=== PATIENT | male | born 1975 | race Caucasian/White ===

== ENCOUNTER 2016-12-12 14:51 | Emergency (ER) | payer SELFPAY ==
[2016-12-12 15:07] VITALS: BP 158/103; BMI 33.8
--- NOTE | 2016-12-12 15:28 | DR.ABDMALE ---
HPI - Time seen Time seen: 15:25 - PCP Primary Care Physician: MARYANN - HPI comment HPI Comment: HISTORY BELOW. - Complaint Chief Complaint Doctors Comments: RUQ, RT FLANK PAIN TIMES 3 DAYS. PAIN ASSOCIATED WITH NAUSEA AND VOMITING. NO FEVER. TODAY, PAIN SEVERE AND HOME MEDICATION IS NOT HELPING. Chief Complaint:: PT C/O RIGHT UPPER QUAD PAIN THAT STARTED ON TUESDAY AND THINKS IT MAYBE HIS GALLBLADDER AND THAT IT NEEDS TO BE REMOVED AND HE DOES NOT HAVE INS ,, Self Treatment fo Chief Complaint: AYESHA BOURGEOIS - Reviewed Nurses Notes Review: Yes - Mode of arrival Mode of Arrival: Ambulatory - Timing Onset of Chief Complaint: 12/03/16 Came on: Gradually - Duration Duration: Constant Duration: Days - Severity Severity: Moderate - Quality Quality: Cramping - Context Onset: Gradually History of: Similar pain (dx) - Modifying factors Worsening Factors: Nothing Improving Factors: Nothing - Associated signs and symptoms Associated Signs and Symptoms: Nausea, Vomiting PMH - PMH Past Medical History: Yes Past Medical History: Anxiety, CHF, Depression, Dyslipidemia, Hypertension, Sleep Apnea Past Surgical History: Yes Surgical History: Appendectomy - Family History History of Family Medical Conditions: Yes Family Medical History: Diabetes Mellitus, Cancer, [place], Coronary Artery Disease, Hypertension - Social History Does patient currently use any type of tobacco product: No Have you used tobacco products in the last 12 months: No Type of Tobacco Use: None How many years tobacco product used: 20 Does any household member use tobacco: No Alcohol Use: None Do you use any recreational Drugs:: No Lives With: Family Lives Where: Home - infectious screening In the last 2 months have you had wt loss of >10#?: NO Have you had fever, night sweats or hemotysis?: No Have you traveled outside the country in the last 6 months?: No Isolation: Standard ROS - Review of Systems Constitutional: No Symptoms Reported Eyes: No Symptoms Reported ENTM: No Symptoms Reported Respiratoy: No Symptoms Reported Cardiovascular: No Symptoms Reported Gastrointestinal/Abdominal: Abdominal Pain, Nausea, Vomiting Genitourinary: No Symptoms Reported Neurological: No Symptoms Reported Musculoskeletal: No Symptoms Reported, Muscle Pain Integumentary: No Symptoms Reported Hematologic/Lymphatic: No Symptoms Reported Endocrine: No Symptoms Reported All Other Systems: Reviewed and Negative PE - Vital Signs Vital Signs: Temp Pulse Resp BP BP BP Pulse Ox 12/12/16 15:03 98.1 F 110 H 22 158/103 98 11/25/15 16:16 122/81 11/04/15 08:00 118/71 11/02/14 04:00 158/102 - General Limitations: No Limitations General Appearance: Alert - Head Head Exam: Normal Inspection - Eyes Eye exam: Normal Appearance - ENT ENT Exam: Normal External Ear Exam - Neck Neck Exam: Trachea Midline - Chest Chest Inspection: Symmetric Chest Wall Rise - Respiratory Respiratory Exam: Prolonged Expiratory Phase Respiratory Exam: Bilateral Clear to Auscultation - Cardiovascular Cardiovascular Exam: Regular Rate, Normal Rhythm, Irregular Rhythm - Abdominal Exam Abdominal Exam: Normal Bowel Sounds, Soft, Tenderness Abdominal Tenderness: RUQ. negative: Epigastrium - Rectal Rectal Exam: Deferred - Back Back Exam: (R) CVA Tenderness - Extremeties Extremities Exam: Normal Inspection - Exam: Male: Deferred - Neurologic Neurological Exam: Alert, Oriented X3 - Psychiatric Psychiatric Exam: Normal Affect, Normal Mood - Skin Skin Exam: Normal Color MDM - Differential Diagnosis Differential Diagnosis: Bowel Obstruction, Cholcystitis, Cholelethiasis, Diverticular disease, Gastroenteritis, Pancreatitis, Urinary tract infection, Urolithiasis Course - Treatment Treatment: SEE ORDERNS - Education/Counseling Education/Counseling: Patient, Education Educated On: Treatment, Diagnosis, Needs for Follow Up ROR - Labs Reviewed Laboratory Results Reviewed?: Yes Result Diagrams: 12/12/16 15:45 12/12/16 15:45 Laboratory: WBC 12.8 X10^3/uL (3.6-10.0) H 12/12/16 15:45 RBC 5.27 X10^6/uL (4.7-6.0) 12/12/16 15:45 Hgb 16.0 g/dL (13.5-18.0) 12/12/16 15:45 Hct 46.9 % (42.0-54.0) 12/12/16 15:45 MCV 88.9 fL (80.0-100.0) 12/12/16 15:45 MCH 30.4 pg (27.0-34.0) 12/12/16 15:45 MCHC 34.2 g/dL (33.0-35.0) 12/12/16 15:45 RDW 13.6 % (11.6-16.5) 12/12/16 15:45 Plt Count 250 X10^3/uL (150.0-450.0) 12/12/16 15:45 MPV 7.5 fL (7.4-11.0) 12/12/16 15:45 Neut % 61.6 % (42.0-75.0) 12/12/16 15:45 Lymph % 24.4 % (21.0-51.0) 12/12/16 15:45 [place] % 8.9 % (0.0-13.0) 12/12/16 15:45 Eos % 4.1 % (0.9-2.9) H 12/12/16 15:45 Baso % 1.0 % (0.2-1.0) 12/12/16 15:45 Neut # 7.9 x10^3/uL (2.2-4.8) H 12/12/16 15:45 Lymph # 3.1 X10^3/uL (1.3-2.9) H 12/12/16 15:45 [place] # 1.1 x10^3/uL (0.3-0.8) H 12/12/16 15:45 Eos # 0.5 x10^3/uL (0.0-0.2) H 12/12/16 15:45 Baso # 0.1 X10^3/uL (0.0-0.1) 12/12/16 15:45 Absolute Nucleated RBC 0.0 /100WBC 12/12/16 15:45 Sodium 130 mmol/L (136-145) L 12/12/16 15:45 Corrected Sodium TNP 12/12/16 15:45 Potassium 3.8 mmol/L (3.5-5.1) 12/12/16 15:45 Chloride 96 mmol/L (98-107) L 12/12/16 15:45 Carbon Dioxide 30.2 mmol/L (21-32) 12/12/16 15:45 BUN 11 mg/dL (7-18) 12/12/16 15:45 Creatinine 1.50 mg/dL (0.70-1.30) H 12/12/16 15:45 Est GFR (MDRD) Af Amer > 60 (>60) 12/12/16 15:45 Est GFR (MDRD) Non-Af 55 (>60) L 12/12/16 15:45 Glucose 80 mg/dL (65-99) 12/12/16 15:45 Calcium 8.6 mg/dL (8.5-10.1) 12/12/16 15:45 Corrected Calcium TNP 12/12/16 15:45 Total Bilirubin 0.30 mg/dL (0.2-1.0) 12/12/16 15:45 AST 13 Units/L (15-37) L 12/12/16 15:45 ALT 18 Units/L (12-78) 12/12/16 15:45 Alkaline Phosphatase 81 Units/L (46-116) 12/12/16 15:45 Total Protein 7.7 g/dL (6.4-8.2) 12/12/16 15:45 Albumin 3.8 g/dL (3.4-5.0) 12/12/16 15:45 Globulin 3.9 g/dL (2.5-4.5) 12/12/16 15:45 Albumin/Globulin Ratio 1.0 Ratio (1.1-2.1) L 12/12/16 15:45 Amylase 29 Units/L (25-115) 12/12/16 15:45 Lipase 147 Units/L (73-393) 12/12/16 15:45 Specimen Type Clean catch urine 12/12/16 15:45 Urine Color Yellow (YELLOW) 12/12/16 15:45 Urine Appearance Hazy (CLEAR) 12/12/16 15:45 Urine pH 5.0 (5.0 - 8.0) 12/12/16 15:45 Ur Specific [place] 1.025 (1.000-1.030) 12/12/16 15:45 Urine Protein 2+ (NEGATIVE) 12/12/16 15:45 Urine Glucose (UA) Negative (NEGATIVE) 12/12/16 15:45 Urine Ketones 1+ (NEGATIVE) 12/12/16 15:45 Urine Occult Blood 2+ (NEGATIVE) 12/12/16 15:45 Urine Nitrite Negative (NEGATIVE) 12/12/16 15:45 Urine Bilirubin Negative (NEGATIVE) 12/12/16 15:45 Urine Urobilinogen 1+ (NORMAL) 12/12/16 15:45 Ur Leukocyte Esterase 1+ (NEGATIVE) 12/12/16 15:45 Urine RBC 0 - 2 /HPF (NEGATIVE) 12/12/16 15:45 Urine WBC 0 - 4 /HPF (NEGATIVE) 12/12/16 15:45 Ur Squamous Epith Cells Few /HPF (NEGATIVE) 12/12/16 15:45 Amorphous Sediment 2+ /HPF (NEGATIVE) 12/12/16 15:45 Urine Bacteria Negative /HPF (NEGATIVE) 12/12/16 15:45 Hyaline Casts Rare /LPF (NEGATIVE) 12/12/16 15:45 Urine Mucus Moderate /HPF (NEGATIVE) 12/12/16 15:45 Ur Culture Indicated? No/not indicated 12/12/16 15:45 - XRAY XRAY Interpreted by: Radiologist XRAY Findings: REPORT DISCUSS WITH PATIENT. - Diagnosis Discharge Problem: Cholelithiasis - Discharge Plan Disposition: 01 HOME, SELF-CARE Condition: Stable Prescriptions: Ondansetron HCl [Zofran Tab 4 mg] 4 mg PO Q8H PRN #12 tab PRN Reason: Nausea/Vomiting Ranitidine HCl [ZANTAC TAB 150 MG *] 150 mg PO BID #20 tab Tramadol HCl 50 mg PO Q8H PRN #15 tablet PRN Reason: - Follow ups/Referrals Follow ups/Referrals: NFD,None [Primary Care Provider] - 3 days MAITE MONTILLA [STAFF PHYSICIAN] - 3 days - Instructions Instructions: Cholelithiasis, Abdominal Pain, Adult, [id number] Additional Instructions: RETURN TO ED IF WORSE.
[2016-12-12 15:53] LABS: BASOPHILS # (AUTO) 0.1 X10^3/uL (0.0-0.1); EOSINOPHILS # (AUTO) 0.5 x10^3/uL (0.0-0.2); EOSINOPHILS % (AUTO) 4.1 % (0.9-2.9); HEMATOCRIT 46.9 % (42.0-54.0); LYMPHOCYTES # (AUTO) 3.1 X10^3/uL (1.3-2.9); LYMPHOCYTES % (AUTO) 24.4 % (21.0-51.0); MEAN CORPUSCULAR HEMOGLOBIN 30.4 pg (27.0-34.0); MEAN CORPUSCULAR HGB CONC 34.2 g/dL (33.0-35.0); MEAN CORPUSCULAR VOLUME 88.9 fL (80.0-100.0); MEAN PLATELET VOLUME 7.5 fL (7.4-11.0); MONOCYTES # (AUTO) 1.1 x10^3/uL (0.3-0.8); MONOCYTES % (AUTO) 8.9 % (0.0-13.0); NEUTROPHILS # (AUTO) 7.9 x10^3/uL (2.2-4.8); NEUTROPHILS % (AUTO) 61.6 % (42.0-75.0); PLATELET COUNT 250 X10^3/uL (150.0-450.0); RED BLOOD COUNT 5.27 X10^6/uL (4.7-6.0); RED CELL DISTRIBUTION WIDTH 13.6 % (11.6-16.5); WHITE BLOOD COUNT 12.8 X10^3/uL (3.6-10.0)
[2016-12-12 15:58] LABS: BILIRUBIN,URINE NEGATIVE (NEGATIVE); BLOOD/HEMOGLOBIN,URINE 2+ (NEGATIVE); GLUCOSE, URINE NEGATIVE (NEGATIVE); KETONES,URINE 1+ (NEGATIVE); LEUKOCYTE ESTERASE ,URINE 1+ (NEGATIVE); NITRITES,URINE NEGATIVE (NEGATIVE); PROTEIN,URINE 2+ (NEGATIVE); UROBILINOGEN,URINE 1+ (NORMAL)
[2016-12-12] MEDS ORDERED: ZOFRAN INJ 4 MG VIAL IM ONE (16:04)
[2016-12-12] MEDS ORDERED: MORPHINE SULFATE INJ 4 MG IM ONE (16:04)
[2016-12-12 16:06] LABS: APPEARANCE,URINE HAZY (CLEAR); COLOR,URINE YELLOW (YELLOW)
[2016-12-12] MEDS ORDERED: ZOFRAN INJ 4 MG VIAL ONE (16:06)
[2016-12-12] MEDS ORDERED: MORPHINE SULFATE INJ 4 MG ONE (16:06)
--- NOTE | 2016-12-12 16:06 | CT ---
HISTORY: Right upper quadrant pain Study: CT abdomen pelvis without contrast Comparison: 04/27/2013 report Technique: Axial noncontrast images with coronal and sagittal reformats. Dose reduction procedures we re used with mA/kv adjusted for body size. The examination is limited due to the lack of intravenous and oral contrast. Findings: The lung bases are clear with the exception of some subsegmental atelectasis in the right lung base. The liver, spleen, adrenal glands, and pancreas are within normal limits to the limitations of an une nhanced examination. The gallbladder is mildly distended. Multiple cholesterol calculi are identified within the gallbladder. Gallbladder wall thickness appears within normal limits. No pericholecystic inflammation is identified. However, if acute cholecystitis is a clinical consideration nuclear medic ine hepatobiliary scan would be of further diagnostic value and should be considered. The kidneys are unobstructed and without stones or masses. No ureteral calculi are identified. The appendix is not i dentified. There are no secondary signs of appendicitis. There is no evidence for diverticulitis or c olitis. Examination of the pelvis demonstrated no evidence for pelvic masses, pelvic fluid, or pelvic lymphadenopathy. No significant skeletal abnormalities identified. IMPRESSION: Cholelithiasis without definite radiographic evidence for cholecystitis. If cholecystitis is a strong clinical consideration nuclear medicine biliary scan would be of further diagnostic value in assessi ng cystic duct patency. Reported By:
[2016-12-12 16:07] LABS: ALANINE AMINOTRANSFERASE 18 Units/L (12-78); ALBUMIN 3.8 g/dL (3.4-5.0); ALKALINE PHOSPHATASE 81 Units/L (46-116); AMYLASE 29 Units/L (25-115); ASPARTATE AMINO TRANSFERASE 13 Units/L (15-37); BLOOD UREA NITROGEN 11 mg/dL (7-18); CALCIUM 8.6 mg/dL (8.5-10.1); CARBON DIOXIDE 30.2 mmol/L (21-32); CHLORIDE 96 mmol/L (98-107); LIPASE 147 Units/L (73-393); SODIUM 130 mmol/L (136-145); TOTAL PROTEIN 7.7 g/dL (6.4-8.2); eGFR BLACK RACES > 60 (>60); eGFR NON BLACK RACES 55 (>60)
[2016-12-12 16:14] LABS: RBC,URINE 0 - 2 /HPF (NEGATIVE); SQUAMOUS EPITHELIAL CELL,UR FEW /HPF (NEGATIVE)
[2016-12-12 16:15] LABS: AMORPHOUS SEDIMENT,UR 2+ /HPF (NEGATIVE); BACTERIA,URINE NEGATIVE /HPF (NEGATIVE); HYALINE CASTS, URINE RARE /LPF (NEGATIVE); MUCUS,URINE MODERATE /HPF (NEGATIVE)
== END 2016-12-12 16:54 | disposition home or self-care (01) ==
LOC: ER 15:11
DX: K80.20 Calculus of gallbladder without cholecystitis without obstruction (principal)
CPT/HCPCS: 36415; 74176; 80053; 81001; 82150; 83690; 85025; 96372; 99283; J2270; J2405

== ENCOUNTER → 2017-04-14 | Outpatient (CLI) | payer OTHER ==
[2017-04-14 11:01] LABS: BASOPHILS # (AUTO) 0.3 X10^3/uL (0.0-0.1); BASOPHILS % (AUTO) 2.7 % (0.2-1.0); EOSINOPHILS # (AUTO) 0.3 x10^3/uL (0.0-0.2); EOSINOPHILS % (AUTO) 3.2 % (0.9-2.9); HEMATOCRIT 44.4 % (42.0-54.0); HEMOGLOBIN 15.3 g/dL (13.5-18.0); LYMPHOCYTES # (AUTO) 3.3 X10^3/uL (1.3-2.9); LYMPHOCYTES % (AUTO) 30.3 % (21.0-51.0); MEAN CORPUSCULAR HEMOGLOBIN 30.4 pg (27.0-34.0); MEAN CORPUSCULAR HGB CONC 34.5 g/dL (33.0-35.0); MEAN CORPUSCULAR VOLUME 88.1 fL (80.0-100.0); MONOCYTES # (AUTO) 0.7 x10^3/uL (0.3-0.8); MONOCYTES % (AUTO) 6.7 % (0.0-13.0); NEUTROPHILS # (AUTO) 6.3 x10^3/uL (2.2-4.8); NEUTROPHILS % (AUTO) 57.1 % (42.0-75.0); PLATELET COUNT 277 X10^3/uL (150.0-450.0); RED BLOOD COUNT 5.04 X10^6/uL (4.7-6.0); RED CELL DISTRIBUTION WIDTH 13.9 % (11.6-16.5)
[2017-04-14 11:12] LABS: ALANINE AMINOTRANSFERASE 19 Units/L (12-78); ALBUMIN 3.4 g/dL (3.4-5.0); ALKALINE PHOSPHATASE 86 Units/L (46-116); ASPARTATE AMINO TRANSFERASE 13 Units/L (15-37); BLOOD UREA NITROGEN 9 mg/dL (7-18); CALCIUM 8.3 mg/dL (8.5-10.1); CARBON DIOXIDE 29.3 mmol/L (21-32); CHLORIDE 103 mmol/L (98-107); CHOL/HDL RATIO 5.3 (0.0-5.0); CHOLESTEROL 154 mg/dL (0-200); CREATININE 1.04 mg/dL (0.70-1.30); FREE T4 (FREE THYROXINE) 1.11 ng/dL (0.76-1.46); HDL CHOLESTEROL 29 mg/dL (40-60); SODIUM 138 mmol/L (136-145); TOTAL PROTEIN 7.1 g/dL (6.4-8.2); TRIGLYCERIDES 76 mg/dL (0-150); TSH (3RD GENERATION) 0.753 uIU/mL (0.358-3.74); eGFR BLACK RACES > 60 (>60); eGFR NON BLACK RACES > 60 (>60)
[2017-04-14 12:36] LABS: TOTAL PSA 0.33 ng/mL (0.13-4.0)
== END ==
LOC: LAB 10:35
PROVIDERS: ATTEND Nurse Practitioner Family
DX: R47.89 Other speech disturbances (principal); Z12.5 Encounter for screening for malignant neoplasm of prostate; Z79.899 Other long term (current) drug therapy
CPT/HCPCS: 36415; 80053; 80061; 84153; 84439; 84443; 85025

== ENCOUNTER 2025-01-17 06:17 | Observation (INO) ==
[2025-01-17] MEDS: LR 1,000 ML IV 1,000 ML IV ONE (07:01)
[2025-01-17] MEDS: NS 100 ML IV 100 ML ONE (07:01)
[2025-01-17] MEDS: LR 1,000 ML IV 800 ML IV PRN (07:10)
[2025-01-17] MEDS: FENTANYL VIAL INJ 100 mcg ONE (07:17)
[2025-01-17] MEDS: VERSED ONE (07:17)
[2025-01-17] MEDS: XYLOCAINE 2 % (PLAIN) ONE (07:18)
[2025-01-17] MEDS: DECADRON INJ ONE (07:18)
[2025-01-17] MEDS: HEPARIN SODIUM INJ 5000 UNITS ONE ×2 (07:18→09:14)
[2025-01-17] MEDS: REGLAN INJ 10 MG VIAL ONE (07:18)
[2025-01-17] MEDS: ZOFRAN INJ 4 MG VIAL ONE (07:18)
[2025-01-17] MEDS: DIPRIVAN VIAL 20 ML ONE ×4 (07:18→09:25)
[2025-01-17] MEDS: TORADOL 30 MG VIAL ONE (07:19)
[2025-01-17] MEDS: PRECEDEX INJ VIAL ONE (07:20)
[2025-01-17] MEDS: PEPCID 20 MG VIAL ONE (07:20)
[2025-01-17] MEDS: DUONEB 0.5 MG/3 MG (3 mL) NEB ONE (07:29)
[2025-01-17] MEDS: ZOFRAN INJ 4 MG VIAL IVP PRN (07:32)
[2025-01-17] MEDS: PEPCID 20 MG VIAL IVP PRN (07:34)
[2025-01-17] MEDS: REGLAN INJ 10 MG VIAL IVP PRN (07:36)
[2025-01-17] MEDS: ANCEF VIAL 1 GRAM IV PRN (07:41)
[2025-01-17] MEDS: ANCEF VIAL 1 GRAM ONE (07:43)
[2025-01-17] MEDS: VERSED IVP PRN (07:43)
[2025-01-17] MEDS: DECADRON INJ IVP PRN (07:51)
[2025-01-17] MEDS: FENTANYL VIAL INJ 100 mcg IVP PRN (07:55)
[2025-01-17] MEDS: XYLOCAINE 2 % (PLAIN) IVP PRN (07:55)
[2025-01-17] MEDS: OFIRMEV IV 1000 MG VIAL 1,000 MG/100 ML VIAL IV ONE (07:55)
[2025-01-17] MEDS: PRECEDEX INJ VIAL IVP PRN ×2 (07:56→09:34)
[2025-01-17] MEDS: DIPRIVAN VIAL 200 ML IVP PRN (07:56)
[2025-01-17] MEDS: KETAMINE HCL IVP PRN ×2 (07:58→09:27)
[2025-01-17] MEDS: OFIRMEV IV 1000 MG VIAL 1,000 MG/100 ML VIAL IV PRN (08:00)
[2025-01-17] MEDS: NORMODYNE INJ 20 MG VIAL ONE (08:07)
[2025-01-17] MEDS: NORMODYNE INJ 20 MG VIAL IVP PRN ×2 (08:08→09:29)
[2025-01-17] MEDS: HEPARIN 1,000 UNIT/500 ML-NS 3,000 UNIT/1,500 ML IV.SOLN ONE (08:13)
[2025-01-17] MEDS: VISIPAQUE 100 ML ONE (08:13)
[2025-01-17] MEDS: MARCAINE 0.5% ONE (08:13)
[2025-01-17] MEDS: VISIPAQUE 50 ML ONE (08:13)
[2025-01-17] MEDS ORDERED: HEPARIN SODIUM INJ 5000 UNITS IVP PRN ×2 (08:16→09:16)
[2025-01-17] MEDS: NS 500 ML IV 500 ML IV ONE (08:35)
[2025-01-17] MEDS: TORADOL 30 MG VIAL IVP PRN (09:02)
[2025-01-17] MEDS: ROBINUL ONE (09:28)
[2025-01-17] MEDS: PROTAMINE SULFATE 50 MG VIAL IVP PRN (09:46)
[2025-01-17] MEDS: PROTAMINE SULFATE 50 MG VIAL ONE (09:46)
[2025-01-17] MEDS: ROBINUL IVP PRN (09:48)
[2025-01-17] MEDS ORDERED: DILAUDID INJ IVP PRN (10:03)
[2025-01-17] MEDS ORDERED: BENADRYL INJ 50 MG VIAL IVP PRN (10:03)
[2025-01-17] MEDS ORDERED: BARHEMSYS INJ IVP PRN (10:03)
[2025-01-17] MEDS ORDERED: REGLAN INJ 10 MG VIAL IVP PRN (10:03)
[2025-01-17] MEDS ORDERED: ZOFRAN INJ 4 MG VIAL IVP PRN (10:03)
[2025-01-17] MEDS: DILAUDID INJ ONE (10:09)
--- NOTE | 2025-01-17 10:24 | OR.IMMED ---
IMMEDIATE POST-OP NOTE Immediate Post-Op Note Date of surgery/procedure: 01/17/25 Pre-Op Diagnosis: Critical ischemia left leg Post-Op Diagnosis: Same Procedure: Aortogram, arteriogram left leg, atherectomy and drug-coated balloon angioplasty and subsequent drug-eluting stenting of the entire occluded left superficial femoral artery with single-vessel runoff via large posterior tibial artery Description of Procedure: dictated Surgeon/Timber Feller: Castro Lainez MD, FACS Findings: Long segment occlusion of the left superficial femoral artery from its takeoff to the adductor canal with one-vessel runoff via large posterior tibial artery Estimated Blood Loss: 100 cc Complications: None Progress Notes: Patient will be kept as observation tonight
[2025-01-17] MEDS ORDERED: LR 1,000 ML IV 1,000 ML IV SCH (11:00)
[2025-01-17] MEDS ORDERED: KETAMINE HCL ONE (11:00)
[2025-01-17] MEDS: LR 1,000 ML IV 1,000 ML IV SCH (11:34)
[2025-01-17] MEDS: PERCOCET TAB 5/325 MG PO PRN (12:12)
[2025-01-17] MEDS ORDERED: PROVENTIL NEB TX 0.083% 2.5MG/ 3ML NEB PRN (14:03)
[2025-01-17 14:05] VITALS: BMI 39.5
[2025-01-17] MEDS: STERILE WATER IRRIGATION IR ONE (16:44)
[2025-01-17] MEDS: LOPRESSOR TAB 25 MG PO SCH (21:33)
[2025-01-17] MEDS: ZESTRIL TAB 20 MG PO SCH (21:33)
[2025-01-18 06:01] LABS: MEAN PLATELET VOLUME 7.6 fL (7.4-11.0); RED CELL DISTRIBUTION WIDTH 15.8 % (11.6-16.5)
[2025-01-18 06:19] LABS: COR CA(FOR HYPOALB) 9.4 mg/dL (8.5-10.1); COR NA(FOR HYPERGLY) 141 mmol/L (136-145); CREATININE 1.01 mg/dL (0.70-1.30); eGFR NON BLACK RACES > 60 (>60)
[2025-01-18 07:40] VITALS: RESP 16
[2025-01-18] MEDS: LOVENOX INJ 40 MG SYR SC SCH (08:23)
[2025-01-18] MEDS: ASPIRIN EC 81 MG PO SCH (08:24)
[2025-01-18] MEDS: LASIX PO SCH (08:24)
[2025-01-18] MEDS: PROTONIX TAB 40 MG PO SCH (08:24)
[2025-01-18] MEDS: LIPITOR TAB 40 MG PO SCH (08:25)
[2025-01-18] MEDS: ZESTRIL TAB 20 MG ONE ×2 (08:25→08:32)
[2025-01-18] MEDS: PLAVIX PO SCH (08:25)
[2025-01-18 09:31] VITALS: O2SAT 98
--- NOTE | 2025-01-18 10:35 | W.DIS.FURT ---
Summary of Discharge Discharge Summary of Date Date of Exam: 01/18/25 Admission Date Date of Admission: 01/17/25 Admission Diagnosis Hospital Course: Is a 49-year-old male with bilateral significant critical ischemia lower extremities. Yesterday he underwent atherectomy and drug-coated balloon angioplasty of long segment occlusion of the left superficial femoral artery. He was kept overnight because of his morbid obesity and dependence on BiPAP at night. He has done well and be discharged today on his usual medications. He will continue aspirin and Plavix and follow-up with me in 1 week Vital Signs: Vital Signs (72 hours) 01/17/25 06:40 01/17/25 06:40 01/17/25 09:58 Temperature 98.0 F 97.8 F Pulse Rate 70 70 82 Pulse Rate [Apical] Respiratory Rate 18 18 Blood Pressure 163/71 140/67 Blood Pressure [Right Arm] O2 Sat by Pulse Oximetry 99 97 Oxygen Delivery Method Room Air Nasal Cannula Oxygen Flow Rate FIO2% 01/17/25 10:03 01/17/25 10:09 01/17/25 10:10 Temperature Pulse Rate 82 83 Pulse Rate [Apical] Respiratory Rate 18 16 20 Blood Pressure 144/62 160/74 Blood Pressure [Right Arm] O2 Sat by Pulse Oximetry 97 97 Oxygen Delivery Method Nasal Cannula Nasal Cannula Oxygen Flow Rate FIO2% 01/17/25 10:20 01/17/25 10:30 01/17/25 10:39 Temperature Pulse Rate 81 79 Pulse Rate [Apical] Respiratory Rate 16 18 16 Blood Pressure 152/79 152/79 Blood Pressure [Right Arm] O2 Sat by Pulse Oximetry 96 96 Oxygen Delivery Method Nasal Cannula Nasal Cannula Oxygen Flow Rate FIO2% 01/17/25 10:40 01/17/25 10:50 01/17/25 11:00 Temperature 98.0 F Pulse Rate 80 Pulse Rate [Apical] 78 Respiratory Rate 18 20 Blood Pressure 162/74 Blood Pressure [Right Arm] 137/75 O2 Sat by Pulse Oximetry 97 98 Oxygen Delivery Method Nasal Cannula Nasal Cannula Nasal Cannula Oxygen Flow Rate 2 2 FIO2% 01/17/25 11:00 01/17/25 11:15 01/17/25 11:30 Temperature Pulse Rate Pulse Rate [Apical] 74 72 Respiratory Rate 20 20 Blood Pressure Blood Pressure [Right Arm] 147/71 151/77 O2 Sat by Pulse Oximetry 98 97 Oxygen Delivery Method Nasal Cannula Nasal Cannula Nasal Cannula Oxygen Flow Rate 2 2 2 FIO2% 28 01/17/25 11:45 01/17/25 12:00 01/17/25 12:12 Temperature Pulse Rate Pulse Rate [Apical] 77 70 Respiratory Rate 20 20 20 Blood Pressure Blood Pressure [Right Arm] 167/72 151/55 O2 Sat by Pulse Oximetry 99 97 Oxygen Delivery Method Nasal Cannula Nasal Cannula Oxygen Flow Rate 2 2 FIO2% 01/17/25 13:00 01/17/25 13:12 01/17/25 14:00 Temperature Pulse Rate Pulse Rate [Apical] 87 87 Respiratory Rate 20 16 20 Blood Pressure Blood Pressure [Right Arm] 168/75 164/71 O2 Sat by Pulse Oximetry 97 97 Oxygen Delivery Method Nasal Cannula Nasal Cannula Oxygen Flow Rate 2 2 FIO2% 01/17/25 15:00 01/17/25 16:00 01/17/25 19:00 Temperature 97.7 F Pulse Rate Pulse Rate [Apical] 87 83 Respiratory Rate 20 19 Blood Pressure Blood Pressure [Right Arm] 187/82 147/73 O2 Sat by Pulse Oximetry 97 98 Oxygen Delivery Method Nasal Cannula Nasal Cannula CPAP Oxygen Flow Rate 2 2 FIO2% 01/17/25 20:00 01/17/25 20:33 01/18/25 00:00 Temperature 98.1 F 97.8 F Pulse Rate Pulse Rate [Apical] 90 85 Respiratory Rate 17 18 Blood Pressure Blood Pressure [Right Arm] 138/64 158/75 O2 Sat by Pulse Oximetry 98 97 Oxygen Delivery Method CPAP Nasal Cannula CPAP Oxygen Flow Rate 2 2 2 FIO2% 28 01/18/25 04:00 01/18/25 06:01 01/18/25 07:00 Temperature 97.6 F Pulse Rate Pulse Rate [Apical] 75 Respiratory Rate 19 19 Blood Pressure Blood Pressure [Right Arm] 147/75 O2 Sat by Pulse Oximetry 92 L Oxygen Delivery Method CPAP Room Air Oxygen Flow Rate 2 FIO2% 01/18/25 07:01 01/18/25 07:39 01/18/25 09:14 Temperature 97.6 F Pulse Rate Pulse Rate [Apical] 80 Respiratory Rate 19 16 Blood Pressure Blood Pressure [Right Arm] 147/75 O2 Sat by Pulse Oximetry 97 Oxygen Delivery Method Room Air Room Air Oxygen Flow Rate 2 FIO2% 01/18/25 09:14 Temperature Pulse Rate 70 Pulse Rate [Apical] Respiratory Rate Blood Pressure Blood Pressure [Right Arm] O2 Sat by Pulse Oximetry 98 Oxygen Delivery Method Oxygen Flow Rate FIO2% Labs: Laboratory Last Values WBC 20.7 X10^3/uL (3.6-10.0) H 01/18/25 05:25 RBC 3.78 X10^6/uL (4.7-6.0) L 01/18/25 05:25 Hgb 12.9 g/dL (13.5-18.0) L 01/18/25 05:25 Hct 38.8 % (42.0-54.0) L 01/18/25 05:25 MCV 102.4 fL (80.0-100.0) H 01/18/25 05:25 MCH 34.1 pg (27.0-34.0) H 01/18/25 05:25 MCHC 33.3 g/dL (33.0-35.0) 01/18/25 05:25 RDW 15.8 % (11.6-16.5) 01/18/25 05:25 Plt Count 227 X10^3/uL (150.0-450.0) 01/18/25 05:25 MPV 7.6 fL (7.4-11.0) 01/18/25 05:25 Neut % (Auto) 88.8 % (42.0-75.0) H 01/18/25 05:25 Lymph % (Auto) 5.7 % (21.0-51.0) L 01/18/25 05:25 [place] % (Auto) 4.4 % (0.0-13.0) 01/18/25 05:25 Eos % (Auto) 0.0 % (0.9-2.9) L 01/18/25 05:25 Baso % (Auto) 1.1 % (0.2-1.0) H 01/18/25 05:25 Neut # (Auto) 18.4 x10^3/uL (2.2-4.8) H 01/18/25 05:25 Lymph # (Auto) 1.2 X10^3/uL (1.3-2.9) L 01/18/25 05:25 [place] # (Auto) 0.9 x10^3/uL (0.3-0.8) H 01/18/25 05:25 Eos # (Auto) 0.0 x10^3/uL (0.0-0.2) 01/18/25 05:25 Baso # (Auto) 0.2 X10^3/uL (0.0-0.1) H 01/18/25 05:25 Absolute Nucleated RBC 0.0 /100WBC 01/18/25 05:25 Sodium 140 mmol/L (136-145) 01/18/25 05:25 Corrected Sodium 141 mmol/L (136-145) 01/18/25 05:25 Potassium 4.4 mmol/L (3.5-5.1) 01/18/25 05:25 Chloride 102 mmol/L (98-107) 01/18/25 05:25 Carbon Dioxide 29.0 mmol/L (21-32) 01/18/25 05:25 BUN 11 mg/dL (7-18) 01/18/25 05:25 Creatinine 1.01 mg/dL (0.70-1.30) 01/18/25 05:25 Est GFR (MDRD) Af Amer > 60 (>60) 01/18/25 05:25 Est GFR (MDRD) Non-Af > 60 (>60) 01/18/25 05:25 Glucose 139 mg/dL (65-99) H 01/18/25 05:25 Calcium 8.5 mg/dL (8.5-10.1) 01/18/25 05:25 Corrected Calcium 9.4 mg/dL (8.5-10.1) 01/18/25 05:25 Total Bilirubin 0.30 mg/dL (0.2-1.0) 01/18/25 05:25 AST 11 Units/L (15-37) L 01/18/25 05:25 ALT 18 Units/L (12-78) 01/18/25 05:25 Alkaline Phosphatase 96 Units/L (46-116) 01/18/25 05:25 Total Protein 6.6 g/dL (6.4-8.2) 01/18/25 05:25 Albumin 2.9 g/dL (3.4-5.0) L 01/18/25 05:25 Globulin 3.7 g/dL (2.5-4.5) 01/18/25 05:25 Albumin/Globulin Ratio 0.8 Ratio (1.1-2.1) L 01/18/25 05:25 Reason For Visit: CRITICAL ISCHEMIA LEFT LEG Discharge Date Discharge Date: 01/18/25 Discharge Diagnosis All Active Problems (Updated 03/27/24 @ 13:32 by BERNICE HENAO MD) Palpitations (Acute) PVD (peripheral vascular disease) (Acute) Hyperlipemia (Acute) Smoker (Acute) CAD (coronary artery disease) (Acute) Carotid stenosis (Acute) Neck pain (Acute) Abscess of skin (Acute) Cellulitis (Acute) Back pain (Acute) Drug overdose, intentional (Acute) Drug abuse and dependence (Acute) Drug overdose (Acute) Sleep apnea (Acute) Suicide (Acute) Chronic back pain (Acute) Strain of thoracic region (Acute) Lumbosacral injury (Acute) Cervical sprain (Acute) Urinary tract infection (Acute) Low back pain (Acute) Spinal stenosis at L4-L5 level (Acute) Musculoskeletal pain (Acute) Spondylosis of cervical spine (Acute) Manic depression (Acute) Bipolar 1 disorder, depressed (Acute) Suicidal ideations (Acute) Severe depression (Acute) Depression (Acute) Suicidal behavior (Acute) Attempted suicide (Acute) Altered mental status (Acute) CHF (congestive heart failure) (Acute) COPD exacerbation (Acute) Laceration (Acute) Psychiatric symptoms (Acute) Cholelithiasis (Acute) Abdominal pain (Acute) Chest pain (Acute) Chest pain (Acute) Hypotension (Acute) Chest pain (Acute) Non-healing wound (Acute) Plan of Treatment: Continue with present treatment and follow up plan. Pt is to keep follow up appointment as instructed and take medications as ordered. Discharge Medications Discharge Medications: No Known Drug Allergies Allergy (Verified 12/04/24 10:21) CONTINUE taking the following medications albuterol sulfate 90 mcg/actuation aerosol inhaler (Ventolin HFA) 2 puff inhalation Q6H PRN 01/17/25 [History] aspirin 81 mg tablet,delayed release 81 mg PO TID 01/17/25 [History] atorvastatin 40 mg tablet 40 mg PO QDAY 01/17/25 [History] bupropion HCl 150 mg 24 hr tablet, extended release 150 mg PO QDAY 01/17/25 [History] carbidopa 25 mg-levodopa 100 mg tablet 1 tab PO BID 01/17/25 [History] ciclopirox 0.77 % topical cream 1 applic topical BID 01/17/25 [History] clopidogrel 75 mg tablet 75 mg PO QDAY 01/17/25 [History] diltiazem HCl 120 mg capsule,24 hr,extended release 120 mg PO QDAY 01/17/25 [History] fluticasone fur. 100 mcg-umeclid 62.5 mcg-vilant 25 mcg inhalat.powder (Trelegy Ellipta) 1 inh inhalation QDAY 01/17/25 [History] fluticasone propionate 50 mcg/actuation nasal spray,suspension 1 spray intranasal DAILY 01/17/25 [History] furosemide 20 mg tablet 20 mg PO QDAY 01/17/25 [History] gabapentin 400 mg capsule 400 mg PO TID 01/17/25 [History] lisinopril 20 mg tablet 20 mg PO BID 01/17/25 [History] metformin 500 mg tablet,extended release 24 hr 500 mg PO QDAY 01/17/25 [History] metoprolol tartrate 50 mg tablet 50 mg PO BID 01/17/25 [History] oxycodone-acetaminophen 10 mg-325 mg tablet 1 tab PO TID PRN 01/17/25 [History] pantoprazole 40 mg tablet,delayed release 40 mg PO BID 01/17/25 [History] topiramate 25 mg tablet 25 mg PO BID 01/17/25 [History] Discharge Disposition Assessment: see hospital course Discharge Plan Discharge Plan Hospital Course: Is a 49-year-old male with bilateral significant critical ischemia lower extremities. Yesterday he underwent atherectomy and drug-coated balloon angioplasty of long segment occlusion of the left superficial femoral artery. He was kept overnight because of his morbid obesity and dependence on BiPAP at night. He has done well and be discharged today on his usual medications. He will continue aspirin and Plavix and follow-up with me in 1 week Patient Disposition: 01 HOME, SELF-CARE Condition: Stable Health Concerns: Post Hospitalization: new medications and changes needed to prevent readmission or further decline. Pt educated and given instructions on all concerns. Plan of Treatment: Continue with present treatment and follow up plan. Pt is to keep follow up appointment as instructed and take medications as ordered. Assessment: see hospital course Prescription drug monitoring program results: PDMP was not reviewed Prescriptions: Continued atorvastatin 40 mg tablet 40 mg PO QDAY lisinopril 20 mg tablet 20 mg PO BID gabapentin 400 mg capsule 400 mg PO TID topiramate 25 mg tablet 25 mg PO BID clopidogrel 75 mg tablet 75 mg PO QDAY oxycodone-acetaminophen 10-325 mg tablet 1 tab PO TID PRN diltiazem HCl 120 mg capsule,extended release 24 hr 120 mg PO QDAY pantoprazole 40 mg tablet,delayed release (DR/EC) 40 mg PO BID metoprolol tartrate 50 mg tablet 50 mg PO BID furosemide 20 mg tablet 20 mg PO QDAY fluticasone propionate 50 mcg/actuation spray,suspension 1 spray INTRANASAL DAILY metformin 500 mg tablet extended release 24 hr 500 mg PO QDAY bupropion HCl 150 mg tablet extended release 24 hr 150 mg PO QDAY Trelegy Ellipta 100-62.5-25 mcg blister with device 1 inh inhalation QDAY aspirin 81 mg Tablet,Delayed Release (Dr/Ec) 81 mg PO TID albuterol sulfate [Ventolin HFA] 90 mcg/actuation Hfa Aerosol Inhaler 2 puff INHALATION Q6H PRN carbidopa-levodopa 25-100 mg tablet 1 tab PO BID ciclopirox 0.77 % cream 1 applic TOPICAL BID Patient Comments: [NO ORIGINAL SIG] Orders to Discharge Patient Discharge Orders: Discharge (Routine); Ordered 01/18/25 Ordered By: Ronald Lainez Follow ups/Referrals Follow ups/Referrals: BRENT BRADEN [Primary Care Provider, MEDICAL] - 1 WEEK Ronald Lainez [STAFF PHYSICIAN, Unknown] - 01/28/25 11:30 am Instructions Instructions: Endovascular Therapy for Peripheral Vascular Disease: What to Know After Stand Alone Forms: Excuse From Work or School, Find Help Web Site, Post Hospital Follow Up Care Print Language: MART[place]
[2025-01-18 11:36] VITALS: BP 159/79; PULSE 65; TEMP 97.4
--- NOTE | 2025-01-21 15:09 | DR.OPNOTE ---
OP NOTE Pre-Op Diagnosis: Critical ischemia left leg Post-Op Diagnosis: Same, see findings below Procedure Date Date Of Procedure: 01/17/25 Procedure: PROCEDURE: Diagnostic aortogram, diagnostic arteriogram left leg, atherectomy, drug-coated balloon angioplasty and subsequent stenting of entire left superficial femoral artery NARRATIVE: The patient was taken to the operative suite and placed in the supine position. The right groin and entire left leg were prepped and draped in sterile fashion. Patient was given intravenous sedation supervised by myself. Timeout for the procedure obtained. Ultrasound used to identify the femoral artery in the right groin and the skin overlying it infiltrated with 0.5% Marcaine. Ultrasound used to guide puncture of the right femoral artery and a 0.012 inch guidewire placed. Incision made over the guidewire at the skin edge with a #11 knife blade and the micro sheath placed over the guidewire into the femoral artery. Small wire exchanged for a 0.035 inch Advantage Glidewire and the micro sheath exchanged for a 5 [place]ian vascular sheath. Patient given 5000 units of intravenous heparin. Omni catheter placed over the guidewire into the aorta and power injector used to perform aortogram showing normal aorta and iliac artery. The Omni catheter was then used to direct the guidewire down the left common iliac artery to the distal left external iliac artery. The Omni catheter exchanged for a [place] catheter and sequential arteriograms performed of the left leg showing complete occlusion of the left superficial femoral and popliteal arteries with re -constitution of the distal popliteal artery with patent tibioperoneal trunk and patent posterior tibial artery all the way to the ankle. Anterior tibial artery and peroneal artery left leg completely occluded. The [place] catheter removed and over the guidewire the 5 [place]ian sheath was exchanged for a 7 [place] Catpult Sheath which was parked in the distal left external iliac artery. [place] catheter and the 0.035 guidewire used to traverse the arteries of the left leg ultimately ending in the left posterior tibial artery. This was selective catheterization. [place] catheter used to exchange 0.035 inch wire for a 0.014 inch Thruway wire. Over the Thru - way wire we placed the 2.4/3.4 mm Jetstream atherectomy device and performed atherectomy of the entire left superficial femoral artery using 1 pass with the blades down and 1 pass with the blades up. There was 1 area we had to predilate of the distal left superficial artery with a 4 mm x 40 mm [place] [employer] [place] balloon . We then performed drug-coated balloon angioplasty of the entire left superficial femoral artery using two 6 mm x 200 mm [place] [employer] [place] drug-coated balloons inflated for 3 minutes eaxh . These overlapped each other. Arteriogram still shows evidence of possible dissection therefore we elected to place Alisa stents . 6 mm 150 mm stents placed x 2 with 3 mm overlap distally in the midportion and finally proximally we finished the stenting of the superficial artery with an Alisa 6 mm x 120 mm stent. All the stents were then balloon dilated with a [place] 6 mm balloon. After arterial intervention follow-up arteriogram performed showing excellent outcome. Wires and devices removed from the Catapult sheath. This sheath pulled back into the aorta and a 0.035 guidewire placed. [place] sheath exchanged over the wire for a Angio-Seal device used to close the puncture of the right femoral artery. Patient taken to same-day surgery in good condition. Type of Anesthesia: Local Anesthesia Comment: 0.5% Marcaine Findings: Complete occlusion of the entire length of the left superficial femoral artery with one-vessel runoff via a large posterior tibial artery to the ankle. Specimen/Pathology: none Type of Fluids Used:: Lactated Ringers Total Amount of Fluid Infused:: 800cc Urine output: 300 cc EBL: 100 cc Drains/Tubes Placed: None Hardware: Alisa 6 mm x 150 mm stent x 2, Alisa stent 6 mm x 120 mm Complications:: none Needle/Sponge Count:: correct Disposition/Condition: Pt. tolerated procedure without difficulty. Taken to [facility] in stable condition.
== END 2025-01-18 11:40 | disposition home or self-care (01) ==
LOC: MED/SURG 06:17 → SURG1 06:17
PROVIDERS: ADMIT Surgery; ATTEND Surgery
DX: E78.5 Hyperlipidemia, unspecified; I10 Essential (primary) hypertension; R73.09 Other abnormal glucose; D64.89 Other specified anemias; Z59.868 Other specified financial insecurity; Z72.0 Tobacco use; R79.89 Other specified abnormal findings of blood chemistry; D72.828 Other elevated white blood cell count; I70.222 Atherosclerosis of native arteries of extremities with rest pain, left leg; J44.9 Chronic obstructive pulmonary disease, unspecified

== ENCOUNTER 2025-02-12 10:00 | Observation (INO) ==
[2025-02-12] MEDS: VERSED ONE (10:27)
[2025-02-12] MEDS: PRECEDEX INJ VIAL ONE (10:28)
[2025-02-12] MEDS: XYLOCAINE 2 % (PLAIN) ONE (10:28)
[2025-02-12] MEDS: FENTANYL VIAL INJ 100 mcg ONE (10:28)
[2025-02-12] MEDS: ZOFRAN INJ 4 MG VIAL ONE (10:28)
[2025-02-12] MEDS: DIPRIVAN VIAL 20 ML ONE ×2 (10:28→12:03)
[2025-02-12] MEDS: HEPARIN SODIUM INJ 5000 UNITS ONE (10:28)
[2025-02-12] MEDS: DECADRON INJ ONE (10:28)
[2025-02-12] MEDS: REGLAN INJ 10 MG VIAL ONE (10:28)
[2025-02-12] MEDS: OFIRMEV IV 1000 MG VIAL 1,000 MG/100 ML VIAL IV ONE (10:28)
[2025-02-12] MEDS: PEPCID 20 MG VIAL ONE (10:37)
[2025-02-12 10:40] VITALS: BMI 36.8
[2025-02-12] MEDS: DUONEB 0.5 MG/3 MG (3 mL) NEB ONE ×2 (10:41→10:44)
[2025-02-12 10:43] LABS: MEAN PLATELET VOLUME 7.0 fL (7.4-11.0); RED CELL DISTRIBUTION WIDTH 16.0 % (11.6-16.5)
[2025-02-12] MEDS: LR 1,000 ML IV 1,000 ML IV ONE (10:43)
[2025-02-12] MEDS: LR 1,000 ML IV 500 ML IV PRN (10:45)
[2025-02-12 10:49] LABS: CREATININE 1.11 mg/dL (0.70-1.30); eGFR NON BLACK RACES > 60 (>60)
[2025-02-12] MEDS: VERSED IVP PRN (11:01)
[2025-02-12] MEDS: ZOFRAN INJ 4 MG VIAL IVP PRN (11:02)
[2025-02-12] MEDS: PEPCID 20 MG VIAL IVP PRN (11:04)
[2025-02-12] MEDS: REGLAN INJ 10 MG VIAL IVP PRN (11:05)
[2025-02-12] MEDS: ANCEF VIAL 1 GRAM ONE (11:06)
[2025-02-12] MEDS: NS 100 ML IV 100 ML ONE (11:06)
[2025-02-12] MEDS: ANCEF VIAL 1 GRAM IV PRN (11:09)
[2025-02-12] MEDS: PRECEDEX INJ VIAL IVP PRN (11:12)
[2025-02-12] MEDS: XYLOCAINE 2 % (PLAIN) IVP PRN (11:12)
[2025-02-12] MEDS: DIPRIVAN VIAL 300 ML IVP PRN (11:13)
[2025-02-12] MEDS: FENTANYL VIAL INJ 100 mcg IVP PRN (11:18)
[2025-02-12] MEDS: DECADRON INJ IVP PRN (11:25)
[2025-02-12] MEDS: OFIRMEV IV 1000 MG VIAL 1,000 MG/100 ML VIAL IV PRN (11:27)
[2025-02-12] MEDS: APRESOLINE INJ 20 MG VIAL ONE (11:30)
[2025-02-12] MEDS: NORMODYNE INJ 20 MG VIAL ONE (11:34)
[2025-02-12] MEDS: VISIPAQUE 100 ML ONE (11:36)
[2025-02-12] MEDS: HEPARIN 1,000 UNIT/500 ML-NS 3,000 UNIT/1,500 ML IV.SOLN ONE (11:36)
[2025-02-12] MEDS: MARCAINE 0.5% ONE (11:36)
[2025-02-12] MEDS: VISIPAQUE 50 ML ONE (11:36)
[2025-02-12] MEDS: HEPARIN SODIUM INJ 5000 UNITS IVP PRN (11:43)
[2025-02-12] MEDS: NORMODYNE INJ 20 MG VIAL IVP PRN (12:03)
[2025-02-12] MEDS: KETAMINE HCL IVP PRN (12:12)
[2025-02-12] MEDS: APRESOLINE INJ 20 MG VIAL IVP PRN (12:38)
[2025-02-12] MEDS: TORADOL 30 MG VIAL ONE (12:40)
[2025-02-12] MEDS: TORADOL 30 MG VIAL IVP PRN (12:41)
--- NOTE | 2025-02-12 13:10 | OR.IMMED ---
IMMEDIATE POST-OP NOTE Immediate Post-Op Note Date of surgery/procedure: 02/12/25 Pre-Op Diagnosis: critical ischemia right leg Post-Op Diagnosis: same, see findings below Procedure: Aortogram, arteriogram right lower extremity, angioplasty of the right posterior tibial artery, atherectomy and drug-coated balloon angioplasty of the entire right superficial femoral artery and popliteal artery Description of Procedure: dictated Surgeon/Medical Staff Specialist: Fatou Findings: Complete occlusion of the proximal right superficial artery with significant disease of the distal right superficial femoral artery, occluded right anterior tibial artery. Large peroneal vessel going to the ankle. Occluded proximal right posteror tibial artery proximally with reconstitution distally to the ankle. Estimated Blood Loss: <100cc Complications: none Progress Notes: to [facility] , will be kept in observation
[2025-02-12] MEDS ORDERED: VENTOLIN or PROAIR HFA IN PRN (13:32)
[2025-02-12] MEDS ORDERED: PERCOCET TAB 5/325 MG PO PRN (13:47)
[2025-02-12] MEDS: NEURONTIN CAP 400 MG PO SCH (15:41)
[2025-02-12] MEDS: LR 1,000 ML IV 1,000 ML IV SCH (17:56)
[2025-02-12] MEDS: CATAPRES TAB 0.1 MG PO ONE (17:59)
[2025-02-12] MEDS: PULMICORT NEB TX 0.5 MG NEB SCH (20:32)
[2025-02-12] MEDS: PROVENTIL NEB TX 0.083% 2.5MG/ 3ML NEB PRN (20:32)
[2025-02-12] MEDS: LOPRESSOR TAB 50 MG PO SCH (20:47)
[2025-02-12] MEDS: SINEMET (PLAIN) 25/100 MG PO SCH (20:48)
[2025-02-12] MEDS: CARDIZEM CD 120 MG 24-HR PO SCH (20:48)
[2025-02-12] MEDS: TOPAMAX PO SCH (20:48)
[2025-02-12] MEDS: COLACE CAP 100 MG PO SCH (21:03)
[2025-02-13 05:42] LABS: MEAN PLATELET VOLUME 7.3 fL (7.4-11.0); RED CELL DISTRIBUTION WIDTH 15.9 % (11.6-16.5)
[2025-02-13 05:46] LABS: COR NA(FOR HYPERGLY) 138 mmol/L (136-145); CREATININE 0.85 mg/dL (0.70-1.30); eGFR NON BLACK RACES > 60 (>60)
[2025-02-13 08:26] VITALS: O2SAT 94
[2025-02-13] MEDS: ASPIRIN EC 81 MG PO SCH (08:38)
[2025-02-13] MEDS: PLAVIX PO SCH (08:38)
[2025-02-13] MEDS: PROTONIX TAB 40 MG PO SCH (08:38)
[2025-02-13] MEDS: FLONASE NASAL SPRAY ENOSTRIL SCH (08:38)
[2025-02-13] MEDS: LASIX PO SCH (08:38)
[2025-02-13] MEDS: WELLBUTRIN XL 150 MG (DAILY) PO SCH (08:38)
[2025-02-13 09:38] VITALS: BP 92/51; PULSE 77; RESP 21; TEMP 97.9
--- NOTE | 2025-02-13 12:00 | W.DIS.FURT ---
Summary of Discharge Discharge Summary of Date Date of Exam: 02/13/25 Admission Date Date of Admission: 02/12/25 Admission Diagnosis Hospital Course: This patient 49-year-old morbidly obese male with significant bilateral peripheral artery disease. He had left leg intervention several weeks ago and yesterday underwent right leg arterial intervention with angioplasty of the right peroneal artery which is only runoff to the foot and atherectomy and drug- coated angioplasty of the entire right superficial femoral artery. He was kept overnight observation has done well. He is to be discharged today as usual medications to include Plavix and aspirin. He will follow-up with me in 1 to 2 weeks. Vital Signs: Vital Signs (72 hours) 02/12/25 10:27 02/12/25 12:55 02/12/25 13:05 Temperature 97.9 F Pulse Rate 63 74 64 Pulse Rate [Radial] Respiratory Rate 20 20 20 Blood Pressure 135/86 131/61 100/54 Blood Pressure [Left Arm] Blood Pressure [Right Arm] O2 Sat by Pulse Oximetry 96 95 96 Oxygen Delivery Method Room Air Nasal Cannula Nasal Cannula Oxygen Flow Rate FIO2% 02/12/25 13:15 02/12/25 13:25 02/12/25 13:25 Temperature Pulse Rate 68 72 Pulse Rate [Radial] Respiratory Rate 20 18 Blood Pressure 113/55 108/54 Blood Pressure [Left Arm] Blood Pressure [Right Arm] O2 Sat by Pulse Oximetry 97 96 Oxygen Delivery Method Nasal Cannula Nasal Cannula Nasal Cannula Oxygen Flow Rate FIO2% 02/12/25 13:35 02/12/25 13:50 02/12/25 14:00 Temperature 97.7 F Pulse Rate 73 Pulse Rate [Radial] 71 Respiratory Rate 18 16 Blood Pressure 131/60 Blood Pressure [Left Arm] Blood Pressure [Right Arm] 114/57 O2 Sat by Pulse Oximetry 96 95 Oxygen Delivery Method Room Air Room Air Oxygen Flow Rate FIO2% 02/12/25 14:05 02/12/25 14:20 02/12/25 14:35 Temperature 97.6 F 97.6 F 97.7 F Pulse Rate Pulse Rate [Radial] 67 66 67 Respiratory Rate 16 17 17 Blood Pressure Blood Pressure [Left Arm] Blood Pressure [Right Arm] 120/58 131/65 125/65 O2 Sat by Pulse Oximetry 96 97 96 Oxygen Delivery Method Oxygen Flow Rate FIO2% 02/12/25 14:50 02/12/25 15:50 02/12/25 15:56 Temperature 97.7 F 97.7 F 97.7 F Pulse Rate Pulse Rate [Radial] 71 74 73 Respiratory Rate 18 17 17 Blood Pressure Blood Pressure [Left Arm] Blood Pressure [Right Arm] 137/76 156/76 156/76 O2 Sat by Pulse Oximetry 96 98 97 Oxygen Delivery Method Oxygen Flow Rate FIO2% 02/12/25 16:38 02/12/25 16:50 02/12/25 17:50 Temperature 97.9 F 98.0 F Pulse Rate Pulse Rate [Radial] 87 86 Respiratory Rate 16 17 Blood Pressure Blood Pressure [Left Arm] Blood Pressure [Right Arm] 184/86 161/84 O2 Sat by Pulse Oximetry 97 98 Oxygen Delivery Method Nasal Cannula Oxygen Flow Rate 2 FIO2% 28 02/12/25 18:50 02/12/25 19:00 02/12/25 20:00 Temperature 97.7 F 98.2 F Pulse Rate Pulse Rate [Radial] 92 H 92 H Respiratory Rate 18 18 Blood Pressure Blood Pressure [Left Arm] Blood Pressure [Right Arm] 160/70 160/80 O2 Sat by Pulse Oximetry 99 95 Oxygen Delivery Method Nasal Cannula Nasal Cannula Oxygen Flow Rate 1 FIO2% 02/12/25 20:30 02/12/25 20:32 02/12/25 23:27 Temperature 98.4 F Pulse Rate 90 Pulse Rate [Radial] 88 Respiratory Rate 16 Blood Pressure Blood Pressure [Left Arm] 162/77 Blood Pressure [Right Arm] O2 Sat by Pulse Oximetry 94 L 95 Oxygen Delivery Method Nasal Cannula Nasal Cannula Oxygen Flow Rate 2 FIO2% 28 02/12/25 23:35 02/13/25 04:00 02/13/25 07:00 Temperature 97.7 F Pulse Rate Pulse Rate [Radial] 72 Respiratory Rate 20 Blood Pressure Blood Pressure [Left Arm] 157/86 Blood Pressure [Right Arm] 147/72 O2 Sat by Pulse Oximetry 98 Oxygen Delivery Method Nasal Cannula Nasal Cannula Oxygen Flow Rate 2 FIO2% 02/13/25 08:00 02/13/25 08:25 02/13/25 08:25 Temperature 97.9 F Pulse Rate 90 Pulse Rate [Radial] 77 Respiratory Rate 21 Blood Pressure Blood Pressure [Left Arm] 92/51 Blood Pressure [Right Arm] O2 Sat by Pulse Oximetry 97 94 L Oxygen Delivery Method Nasal Cannula Nasal Cannula Oxygen Flow Rate 2 FIO2% 28 Labs: Laboratory Last Values WBC 18.8 X10^3/uL (3.6-10.0) H 02/13/25 05:08 RBC 3.78 X10^6/uL (4.7-6.0) L 02/13/25 05:08 Hgb 12.6 g/dL (13.5-18.0) L 02/13/25 05:08 Hct 37.7 % (42.0-54.0) L 02/13/25 05:08 MCV 99.6 fL (80.0-100.0) 02/13/25 05:08 MCH 33.4 pg (27.0-34.0) 02/13/25 05:08 MCHC 33.5 g/dL (33.0-35.0) 02/13/25 05:08 RDW 15.9 % (11.6-16.5) 02/13/25 05:08 Plt Count 261 X10^3/uL (150.0-450.0) 02/13/25 05:08 MPV 7.3 fL (7.4-11.0) L 02/13/25 05:08 Neut % (Auto) 89.4 % (42.0-75.0) H 02/13/25 05:08 Lymph % (Auto) 6.5 % (21.0-51.0) L 02/13/25 05:08 Edwards % (Auto) 3.8 % (0.0-13.0) 02/13/25 05:08 Eos % (Auto) 0.0 % (0.9-2.9) L 02/13/25 05:08 Baso % (Auto) 0.3 % (0.2-1.0) 02/13/25 05:08 Neut # (Auto) 16.8 x10^3/uL (2.2-4.8) H 02/13/25 05:08 Lymph # (Auto) 1.2 X10^3/uL (1.3-2.9) L 02/13/25 05:08 Edwards # (Auto) 0.7 x10^3/uL (0.3-0.8) 02/13/25 05:08 Eos # (Auto) 0.0 x10^3/uL (0.0-0.2) 02/13/25 05:08 Baso # (Auto) 0.1 X10^3/uL (0.0-0.1) 02/13/25 05:08 Absolute Nucleated RBC 0.0 /100WBC 02/13/25 05:08 Sodium 137 mmol/L (136-145) 02/13/25 05:08 Corrected Sodium 138 mmol/L (136-145) 02/13/25 05:08 Potassium 4.7 mmol/L (3.5-5.1) 02/13/25 05:08 Chloride 100 mmol/L (98-107) 02/13/25 05:08 Carbon Dioxide 32.2 mmol/L (21-32) H 02/13/25 05:08 BUN 9 mg/dL (7-18) 02/13/25 05:08 Creatinine 0.85 mg/dL (0.70-1.30) 02/13/25 05:08 Est GFR (MDRD) Af Amer > 60 (>60) 02/13/25 05:08 Est GFR (MDRD) Non-Af > 60 (>60) 02/13/25 05:08 Glucose 125 mg/dL (65-99) H 02/13/25 05:08 Calcium 8.4 mg/dL (8.5-10.1) L 02/13/25 05:08 Blood Type A POSITIVE 02/12/25 10:28 Antibody Screen Negative 02/12/25 10:28 Reason For Visit: CRITICAL ISCHEMIA RIGHT LEG Discharge Date Discharge Date: 02/13/25 Discharge Diagnosis All Active Problems (Updated 03/27/24 @ 13:32 by BERNICE HENAO MD) Palpitations (Acute) PVD (peripheral vascular disease) (Acute) Hyperlipemia (Acute) Smoker (Acute) CAD (coronary artery disease) (Acute) Carotid stenosis (Acute) Neck pain (Acute) Abscess of skin (Acute) Cellulitis (Acute) Back pain (Acute) Drug overdose, intentional (Acute) Drug abuse and dependence (Acute) Drug overdose (Acute) Sleep apnea (Acute) Suicide (Acute) Chronic back pain (Acute) Strain of thoracic region (Acute) Lumbosacral injury (Acute) Cervical sprain (Acute) Urinary tract infection (Acute) Low back pain (Acute) Spinal stenosis at L4-L5 level (Acute) Musculoskeletal pain (Acute) Spondylosis of cervical spine (Acute) Manic depression (Acute) Bipolar 1 disorder, depressed (Acute) Suicidal ideations (Acute) Severe depression (Acute) Depression (Acute) Suicidal behavior (Acute) Attempted suicide (Acute) Altered mental status (Acute) CHF (congestive heart failure) (Acute) COPD exacerbation (Acute) Laceration (Acute) Psychiatric symptoms (Acute) Cholelithiasis (Acute) Abdominal pain (Acute) Chest pain (Acute) Chest pain (Acute) Hypotension (Acute) Chest pain (Acute) Non-healing wound (Acute) Plan of Treatment: Continue with present treatment and follow up plan. Pt is to keep follow up appointment as instructed and take medications as ordered. Discharge Medications Discharge Medications: No Known Drug Allergies Allergy (Verified 12/04/24 10:21) Discharge Disposition Assessment: see hospital course Discharge Plan Discharge Plan Hospital Course: This patient 49-year-old morbidly obese male with significant bilateral peripheral artery disease. He had left leg intervention several weeks ago and yesterday underwent right leg arterial intervention with angioplasty of the right peroneal artery which is only runoff to the foot and atherectomy and drug- coated angioplasty of the entire right superficial femoral artery. He was kept overnight observation has done well. He is to be discharged today as usual medications to include Plavix and aspirin. He will follow-up with me in 1 to 2 weeks. Patient Disposition: 01 HOME, SELF-CARE Condition: Stable Health Concerns: Post Hospitalization: new medications and changes needed to prevent readmission or further decline. Pt educated and given instructions on all concerns. Care Plan Goals: Problem: Altered Tissue Perfusion Goal: Adequate Tissue Perfusion Instructions: Follow provided instructions. Follow up with primary physician as directed. Contact primary care physician or report to the closest Emergency Room if condition worsens. Plan of Treatment: Continue with present treatment and follow up plan. Pt is to keep follow up appointment as instructed and take medications as ordered. Assessment: see hospital course Prescription drug monitoring program results: PDMP was not reviewed Prescriptions: Continued atorvastatin 40 mg tablet 40 mg PO QDAY lisinopril 20 mg tablet 20 mg PO BID gabapentin 400 mg capsule 400 mg PO TID topiramate 25 mg tablet 25 mg PO BID clopidogrel 75 mg tablet 75 mg PO QDAY oxycodone-acetaminophen 10-325 mg tablet 1 tab PO TID PRN diltiazem HCl 120 mg capsule,extended release 24 hr 120 mg PO QDAY pantoprazole 40 mg tablet,delayed release (/EC) 40 mg PO BID metoprolol tartrate 50 mg tablet 50 mg PO BID furosemide 20 mg tablet 20 mg PO QDAY fluticasone propionate 50 mcg/actuation spray,suspension 1 spray INTRANASAL DAILY metformin 500 mg tablet extended release 24 hr 500 mg PO QDAY bupropion HCl 150 mg tablet extended release 24 hr 150 mg PO QDAY Trelegy Ellipta 100-62.5-25 mcg blister with device 1 inh inhalation QDAY aspirin 81 mg Tablet,Delayed Release (Dr/Ec) 81 mg PO TID albuterol sulfate [Ventolin HFA] 90 mcg/actuation Hfa Aerosol Inhaler 2 puff INHALATION Q6H PRN carbidopa-levodopa 25-100 mg tablet 1 tab PO BID ciclopirox 0.77 % cream 1 applic TOPICAL BID Patient Comments: [NO ORIGINAL SIG] Orders to Discharge Patient Discharge Orders: Discharge (Routine); Ordered 02/13/25 Ordered By: Ronald Lainez Follow ups/Referrals Follow ups/Referrals: Ronald Lainez [STAFF PHYSICIAN, Unknown] - 02/25/25 1:45 pm Instructions Instructions: Health Risks of Smoking, Angiogram, [id number], Preventing Poor Blood Flow (Peripheral Vascular Disease), Endovascular Therapy for Peripheral Vascular Disease: What to Know After, Endovascular Therapy for Peripheral Vascular Disease: What to Expect Stand Alone Forms: Find Help Web Site, Post Hospital Follow Up Care Print Language: FILIPINO
--- NOTE | 2025-02-14 14:47 | DR.OPNOTE ---
OP NOTE Pre-Op Diagnosis: Critical ischemia right leg Post-Op Diagnosis: Same, see findings below Procedure Date Date Of Procedure: 02/12/25 Procedure: PROCEDURE: Diagnostic aortogram, diagnostic arteriogram right leg, angioplasty takeoff of the right posterior tibial artery, atherectomy and drug- coated balloon angioplasty of the entire right superficial femoral artery and popliteal artery on the right side NARRATIVE: The patient was taken to the operative suite and placed in the supine position. The left groin and entire right leg were prepped and draped in sterile fashion. Patient was given intravenous sedation supervised by myself. Timeout for the procedure obtained. Ultrasound used to identify the femoral artery in the left groin and the skin overlying it infiltrated with 0.5% Marcaine. Ultrasound used to guide puncture of the left femoral artery and a 0.012 inch guidewire placed. Incision made over the guidewire at the skin edge with a #11 knife blade and the micro sheath placed over the guidewire into the femoral artery. Small wire exchanged for a 0.035 inch a Advantage Glidewire and the micro sheath exchanged for a 5 [place] vascular sheath. Patient given 5000 units of intravenous heparin. Omni catheter placed over the guidewire into the aorta and power injector used to perform aortogram showing normal aorta and iliac arteries bilaterally. The Omni catheter was then used to direct the guidewire down the right common iliac artery to the distal right external iliac artery. The Omni catheter exchanged for a [place] catheter and sequential arteriograms performed of the right leg showing severely diseased right superficial femoral artery and popliteal artery along the entire length with several areas of complete occlusion and reconstitution distally of the tibioperoneal trunk with occluded anterior tibial artery and a large peroneal artery going to the ankle and occluded proximal right posterior tibial artery with reconstitution extending to the ankle. The [place] catheter removed and over the guidewire the 5 [place] sheath was exchanged for a 7 [place] Catpult Sheath which was parked in the right external iliac artery. [place] catheter and the 0.035 guidewire used to traverse the arteries of the right leg ultimately ending in right posterior tibial artery across the occlusion into the ankle. This was selective catheterization. [place] catheter used to exchange 0.035 inch wire for a 0.014 inch Thruway wire. Over the Thruway wire we placed the Jetstream atherectomy device and performed atherectomy of the entire right superficial femoral artery and popliteal artery. This removed and we performed angioplasty of the takeoff of the right posterior tibial artery with a [place] 2.5 x 100 mm balloon inflated for 1 minute. This removed and then we sequentially dilated the popliteal artery and superficial femoral artery on the right side using two 5 mm x 200 mm [place] [employer] [place] balloon sequentially end to end with minimal overlap inflated for 3 minutes each and finally the proximal portion of the superficial femoral artery dilated with a [place] 6 mm x 100 mm drug-coated balloon with 3 mm overlap. Postprocedure arteriogram showed excellent result. Wires and devices removed from the Catapult sheath. This sheath pulled back into the aorta and a 0.035 guidewire placed. [place] sheath exchanged over the wire for a Angio-Seal device used to close the puncture of the left femoral artery. Patient taken to same-day surgery in good condition. Type of Anesthesia: Local (0.5% Marcaine) Anesthesia Comment: Plus MAC Findings: Severely diseased right superficial femoral artery and popliteal artery along its length, occluded right anterior tibial artery, large peroneal artery going to the ankle and occluded right posterior tibial artery at its takeoff with reconstitution distally all the way to the ankle Type of Fluids Used:: Lactated Ringers Total Amount of Fluid Infused:: 500cc Urine output: 50 cc EBL: 100cc Complications:: none Needle/Sponge Count:: correct Disposition/Condition: Pt. tolerated procedure without difficulty. Taken to [facility] in stable condition.
== END 2025-02-13 12:35 | disposition home or self-care (01) ==
LOC: SURG1 10:00 → MED/SURG 10:00
PROVIDERS: ADMIT Surgery; ATTEND Surgery
DX: J44.9 Chronic obstructive pulmonary disease, unspecified; Z79.899 Other long term (current) drug therapy; D72.828 Other elevated white blood cell count; E78.5 Hyperlipidemia, unspecified; Z72.0 Tobacco use; Z68.41 Body mass index [BMI] 40.0-44.9, adult; I70.221 Atherosclerosis of native arteries of extremities with rest pain, right leg; R05.8 Other specified cough; R79.89 Other specified abnormal findings of blood chemistry; E11.65 Type 2 diabetes mellitus with hyperglycemia; I10 Essential (primary) hypertension; E66.01 Morbid (severe) obesity due to excess calories; I87.1 Compression of vein